=== PATIENT | female | born 1990 | race African-American/Black ===

== ENCOUNTER 2016-11-15 09:58 | Inpatient (IN) | payer BC, OTHER ==
[2016-11-15 10:02] VITALS: BMI 19.1
[2016-11-15] MEDS ORDERED: D5 1/2 NS 1000 ML 1,000 ML IV ONE (10:30)
[2016-11-15 10:36] LABS: AMNISURE ROM TEST THERE IS A RUPTURE (NO RUPTURE)
[2016-11-15] MEDS ORDERED: PHENERGAN INJ 25 MG IV PRN ×2 (11:04→13:17)
[2016-11-15] MEDS ORDERED: D5LR 1L W PITOCIN 10 UNITS/L 10 UNITS/1,000 ML BAG IV PRN (11:04)
[2016-11-15] MEDS ORDERED: REGLAN INJ 10 MG VIAL IVP PRN (11:04)
[2016-11-15] MEDS ORDERED: NUBAIN INJ 200 MG VIAL MULTIDOSE IVP PRN (11:04)
[2016-11-15] MEDS ORDERED: PITOCIN IVP ONE (11:04)
[2016-11-15 11:15] LABS: BILIRUBIN,URINE NEGATIVE (NEGATIVE); BLOOD/HEMOGLOBIN,URINE 2+ (NEGATIVE); GLUCOSE, URINE NEGATIVE (NEGATIVE); KETONES,URINE NEGATIVE (NEGATIVE); LEUKOCYTE ESTERASE ,URINE 2+ (NEGATIVE); NITRITES,URINE NEGATIVE (NEGATIVE); PROTEIN,URINE 1+ (NEGATIVE); UROBILINOGEN,URINE 1+ (NORMAL)
[2016-11-15] MEDS ORDERED: AMPICILLIN VIAL 2 GM ONE (11:16)
[2016-11-15] MEDS ORDERED: D5LR 1L W PITOCIN 10 UNITS/L 10 UNITS/1,000 ML BAG IV ONE (11:16)
[2016-11-15] MEDS ORDERED: D5 1/2 NS 1L W PITOCIN 20 UNITS/L 20 UNITS/1,000 ML BAG IV ONE (11:16)
[2016-11-15] MEDS ORDERED: NS 100 ML IV 100 ML IV ONE (11:16)
[2016-11-15 11:18] LABS: APPEARANCE,URINE SLIGHTLY HAZY (CLEAR); COLOR,URINE YELLOW (YELLOW)
[2016-11-15 11:27] LABS: AMORPHOUS SEDIMENT,UR 2+ /HPF (NEGATIVE); BACTERIA,URINE TRACE /HPF (NEGATIVE); HYALINE CASTS, URINE RARE /LPF (NEGATIVE); MUCUS,URINE MODERATE /HPF (NEGATIVE); SQUAMOUS EPITHELIAL CELL,UR MANY /HPF (NEGATIVE)
[2016-11-15 11:55] LABS: BASOPHILS % (AUTO) 0.2 % (0.2-1.0); EOSINOPHILS % (AUTO) 0.1 % (0.9-2.9); HEMATOCRIT 33.3 % (36.0-47.0); HEMOGLOBIN 11.8 g/dL (12.0-16.0); LYMPHOCYTES # (AUTO) 0.7 X10^3/uL (1.3-2.9); LYMPHOCYTES % (AUTO) 11.2 % (21.0-51.0); MEAN CORPUSCULAR HEMOGLOBIN 30.7 pg (27.0-34.0); MEAN CORPUSCULAR HGB CONC 35.6 g/dL (33.0-35.0); MEAN CORPUSCULAR VOLUME 86.3 fL (80.0-100.0); MEAN PLATELET VOLUME 7.5 fL (7.4-11.0); MONOCYTES # (AUTO) 0.4 x10^3/uL (0.3-0.8); MONOCYTES % (AUTO) 5.4 % (0.0-13.0); NEUTROPHILS # (AUTO) 5.4 x10^3/uL (2.2-4.8); NEUTROPHILS % (AUTO) 83.1 % (42.0-75.0); PLATELET COUNT 211 X10^3/uL (150.0-450.0); RED BLOOD COUNT 3.85 X10^6/uL (3.5-5.4); RED CELL DISTRIBUTION WIDTH 12.9 % (11.6-16.5); WHITE BLOOD COUNT 6.6 X10^3/uL (3.6-10.0)
[2016-11-15 11:56] LABS: BLOOD UREA NITROGEN 7 mg/dL (7-18); CALCIUM 8.2 mg/dL (8.5-10.1); CARBON DIOXIDE 22.4 mmol/L (21-32); CHLORIDE 106 mmol/L (98-107); SODIUM 138 mmol/L (136-145); eGFR BLACK RACES > 60 (>60); eGFR NON BLACK RACES > 60 (>60)
[2016-11-15] MEDS ORDERED: D5 1/2 NS 1000 ML 1,000 ML IV SCH (12:00)
[2016-11-15] MEDS ORDERED: COLACE CAP 100 MG PO SCH (12:00)
[2016-11-15] MEDS ORDERED: AMPICILLIN VIAL 2 GM 2 GM in NS 100 ML IV + SPIKE MINIBAG* 100 ML IV SCH (12:00)
[2016-11-15] MEDS ORDERED: MOTRIN TAB 800 MG PO PRN ×4 (13:17→19:36)
[2016-11-15] MEDS ORDERED: DERMOPLAST SPRAY TOP PRN (13:58)
[2016-11-15] MEDS ORDERED: AMBIEN PO PRN (13:58)
[2016-11-15] MEDS ORDERED: MILK OF MAGNESIA PO PRN (13:58)
[2016-11-15] MEDS ORDERED: D5 1/2 NS 1000 ML 1,000 ML with PITOCIN 20 UNITS IV SCH ×2 (14:00)
[2016-11-15] MEDS ORDERED: AMPICILLIN VIAL 1 GM 1 GM in NS 50 ML IV + SPIKE MINIBAG* 50 ML IV SCH (15:07)
[2016-11-15] MEDS ORDERED: ZANTAC PO SCH (21:00)
[2016-11-16 05:33] LABS: HEMOGLOBIN 11.6 g/dL (12.0-16.0)
[2016-11-16] MEDS ORDERED: MOTRIN TAB 800 MG PO PRN ×4 (07:13→08:25)
[2016-11-16] MEDS ORDERED: MILK OF MAGNESIA PO SCH (09:00)
[2016-11-16] MEDS ORDERED: PRENATAL PLUS PO SCH (09:00)
[2016-11-16] MEDS ORDERED: DEPO-PROVERA CONTRACEPTIVE INJ IM SCH (14:00)
[2016-11-16 14:03] VITALS: BP 102/50
[2016-11-16] MEDS ORDERED: ADACEL TDaP IM ONE (15:51)
== END 2016-11-16 16:45 | disposition home or self-care (01) | DRG 775 ==
LOC: ER 10:16 → LD 10:44 → UNDOADMIN 10:44 → MED/SURG 13:18
PROVIDERS: ADMIT Specialist; ATTEND Specialist
PROC: 10E0XZZ Delivery of Products of Conception, External Approach (ICD-10-PCS; principal; 2016-11-15)
PROC: 3E0234Z Introduction of Serum, Toxoid and Vaccine into Muscle, Percutaneous Approach (ICD-10-PCS; 2016-11-16)
DX: O99.013 Anemia complicating pregnancy, third trimester (principal); Z37.0 Single live birth; O26.893 Other specified pregnancy related conditions, third trimester; Z3A.37 37 weeks gestation of pregnancy; Z23 Encounter for immunization
CPT/HCPCS: 36415; 80048; 81001; 84112; 85014; 85018; 85025; 86592; 86850; 86900; 86901; 96365; 99284; A4216; A4222; J0290; J1050; J2590; J7042